=== PATIENT | female | born 1985 | race Hispanic/Latino ===

== ENCOUNTER 2025-02-10 11:54 | Outpatient (CLI) | payer BC | END 2025-02-10 11:55 | disposition home or self-care (01) | LOC: BICMAMMO 11:54 | PROVIDERS: ATTEND Family Medicine | DX: Z12.31 Encounter for screening mammogram for malignant neoplasm of breast (principal); N64.89 Other specified disorders of breast; Z80.3 Family history of malignant neoplasm of breast | CPT/HCPCS: 77063; 77067 ==